=== PATIENT | male | born 1995 | race American Indian/Alaskan Native ===

== ENCOUNTER 2021-07-14 17:13 | Emergency (ER) | payer SELFPAY | END 2021-07-14 18:08 | disposition left against medical advice (07) | LOC: ED 17:13 | DX: A64 Unspecified sexually transmitted disease (principal); Z53.21 Procedure and treatment not carried out due to patient leaving prior to being seen by health care provider ==

== ENCOUNTER 2021-07-17 22:44 | Emergency (ER) | payer SELFPAY | END 2021-07-18 00:10 | disposition left against medical advice (07) | LOC: ED 22:44 | DX: Z20.2 Contact with and (suspected) exposure to infections with a predominantly sexual mode of transmission (principal); Z53.21 Procedure and treatment not carried out due to patient leaving prior to being seen by health care provider ==